=== PATIENT | male | born 1985 | race Caucasian/White ===

== ENCOUNTER → 2016-11-24 | Outpatient (CLI) | payer OTHER ==
--- NOTE | 2016-11-24 09:45 | MR ---
MR brain without contrast HISTORY: Episodic cluster headaches, G 44.19 Multiplanar multisequence imaging through the brain. Correlation to MR angiogram same date There is no restricted diffusion. There is no hemorrhage or hydrocephalus. Corpus callosum shows some pericallosal hyperintensity on inversion recovery and T2-weighted sequences, there are confluent and scattered foci within the deep white matter, approximately 5-10 lesions. There are normal vascular f low voids. Cerebellopontine angles, pituitary, cervical medullary junction are normal. The orbits jimmy w symmetric appearance. Inflammatory changes mild within the maxillary sinus, ethmoid air cells and f rontal sinus. Question a small focus of gliosis involving the right frontal cortex, axial image 19 of the inversion recovery dataset, possible remote trauma. IMPRESSION: Nonspecific white matter demyelination, consider migraine headaches, hypertension, vascul itis, multiple sclerosis in the appropriate clinical setting. Additional findings above.
--- NOTE | 2016-11-24 10:01 | MR ---
EXAMINATION TYPE: MR angio head wo con DATE OF EXAM: 11/24/2016 COMPARISON: Correlation MRI brain HISTORY: 31-year-old male with episodic cluster headaches TECHNIQUE: High resolution 3-D time of flight images focusing on the [place] were performed without contrast. 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 The typical origin of the right ant erior inferior cerebellar artery is not seen. Additionally, there is a prominent right posterior comm unicating artery. All of these changes suggest normal congenital variation. There is no arterial occlusion, significant stenosis, or aneurysmal change seen. IMPRESSION: Some variant anatomy as above. No significant stenosis or aneurysmal change seen.
== END ==
LOC: RADMRIMAIN 08:14
PROVIDERS: ATTEND Psychiatry & Neurology Neurology
DX: R90.89 Other abnormal findings on diagnostic imaging of central nervous system (principal); G44.019 Episodic cluster headache, not intractable
CPT/HCPCS: 70544; 70551

== ENCOUNTER → 2019-07-18 | Outpatient (CLI) | payer OTHER ==
--- NOTE | 2019-07-18 18:30 | XR ---
EXAMINATION TYPE: XR chest 2V DATE OF EXAM: 07/18/2019 COMPARISON: NONE HISTORY: Cough and congestion TECHNIQUE: 2 views FINDINGS: Heart and mediastinum are normal. Lungs are clear. Diaphragm is normal. Bony thorax appears normal. IMPRESSION: Normal chest.
== END | disposition home or self-care (01) ==
LOC: RAD 17:12
PROVIDERS: ATTEND Family Medicine
DX: R05 Cough (principal)
CPT/HCPCS: 71046

== ENCOUNTER 2020-12-27 08:03 | Day surgery (SDC) | payer OTHER ==
[2020-12-25 12:26] VITALS: BMI 33.2
[~2020-12-27 08:03] MED LIST: LACTATED RINGERS 1,000 ML IV SCH
[2020-12-27 09:22] VITALS: TEMP 97.6
[2020-12-27] MEDS ORDERED: LIDOCAINE 1% (10MG/ML) FOR IV START INTRADERMA ONE (09:26)
[2020-12-27] MEDS ORDERED: PROPOFOL 10 MG/ML 20 ML VIAL IV ONE (09:45)
[2020-12-27] MEDS ORDERED: LIDOCAINE 1% INJ 10MG/ML (20 ML MDV) ONE (09:45)
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
--- NOTE | 2020-12-27 10:08 | P.PCN ---
Date of Procedure: 12/27/20 Preoperative Diagnosis: Rectal bleed Postoperative Diagnosis: Internal hemorrhoids Procedure(s) Performed: Colonoscopy Anesthesia: MAC Surgeon: Landon Patel Pathology: none sent Condition: stable Disposition: same day Indications for Procedure: 35-year-old male presents with recent findings of rectal bleeding. He does have a history of hemorrhoid pathology. Plan is for colonoscopy. Risks, benefits and alternatives were provided to the patient. Consent was obtained. Operative Findings: Internal hemorrhoids Description of Procedure: The patient was brought to the endoscopy suite and placed in left lateral decubitus position. Adequate sedation was achieved using conscious sedation. A digital rectal exam was performed and mild internal hemorrhoids were palpated. An endoscope was then placed in the rectum and advanced to the cecum as id entified by landmarks including the appendiceal orifice and the ileocecal valve.. Colonoscope was then slowly withdrawn, examining for any mucosal abnormality. The cecum, ascending, transverse, descending and sigmoid colon were visualized adequately. No polyps were noted throughout the colon there was no evidence of neoplastic lesion. There was no evidence of diverticulosis. Retroflexion was performed in the rectum and internal hemorrhoids were visible. Excess air was removed, the colonoscope withdrawn and the procedure terminated. The patient was then transferred to the recovery unit in stable condition. Repeat colonoscopy should be performed at age 50 based on current screening guidelines unless otherwise symptomatically.
[2020-12-27 10:15] VITALS: RESP 16
[2020-12-27 10:24] VITALS: BP 111/74; PULSE 84
== END 2020-12-27 10:55 | disposition home or self-care (01) ==
LOC: ORWHC2ENDO 08:03
PROVIDERS: ATTEND Surgery
DX: K62.5 Hemorrhage of anus and rectum (principal); K64.8 Other hemorrhoids; K21.9 Gastro-esophageal reflux disease without esophagitis; J30.2 Other seasonal allergic rhinitis; Z87.820 Personal history of traumatic brain injury; Z98.890 Other specified postprocedural states; Z87.891 Personal history of nicotine dependence; Z79.899 Other long term (current) drug therapy
CPT/HCPCS: 45378; J2001; J2704

== ENCOUNTER → 2021-11-14 | Outpatient (CLI) | payer OTHER ==
--- NOTE | 2021-11-14 10:54 | US ---
EXAMINATION TYPE: US abdomen complete DATE OF EXAM: 11/14/2021 COMPARISON: NONE CLINICAL HISTORY: R31.9 HEMATURIA. LUQ pain x 2 years and hematuria. EXAM MEASUREMENTS: Liver Length: 16.6 cm Gallbladder Wall: 0.23 cm CBD: 0.23 cm Spleen: 11.9 cm Right Kidney: 10.3 x 6.1 x 5.4 cm Left Kidney: 12.1 x 6.0 x 7.5 cm Pancreas: Obscured by bowel gas Liver: Increased attenuation, heterogeneous Gallbladder: wnl Evidence for sonographic Pat's sign: No CBD: wnl Spleen: wnl Right Kidney: wnl Left Kidney: wnl Upper IVC: wnl Abd Aorta: Obscured by overlying bowel gas. Parts visualized wnl The visualized liver is heterogeneously hyperechoic. Suspect mild diffuse fatty infiltration. The in trahepatic portion of the IVC and proximal, mid, and distal abdominal aorta are within normal limits. There is no evidence of cholelithiasis. Common bile duct is unremarkable. Majority of pancreas obs cured by overlying bowel gas on initial images. The spleen is unremarkable. Kidneys are symmetric a nd free of hydronephrosis. No renal lesions are seen. IMPRESSION: Source of left upper quadrant pain and hematuria not identified. Suboptimal evaluation of pancreas. If symptoms persist further investigation with CT without and with IV contrast would be wa rranted.
== END | disposition home or self-care (01) ==
LOC: RADUSWWP 08:15
PROVIDERS: ATTEND Family Medicine
DX: R31.9 Hematuria, unspecified (principal); R10.12 Left upper quadrant pain
CPT/HCPCS: 76700

== ENCOUNTER → 2022-07-22 | Outpatient (CLI) | payer OTHER ==
--- NOTE | 2022-07-22 10:40 | CT ---
EXAMINATION TYPE: CT abdomen pelvis w con CT DLP: 1800 mGycm, Automated exposure control for dose reduction was used. DATE OF EXAM: 07/22/2022 10:13 AM COMPARISON: None CLINICAL INDICATION:Male, 36 years old with history of K57.90 R07.9; TECHNIQUE: Axial CT of the abdomen and pelvis. Sagittal and coronal reformats were created on a [employer] workstation. Contrast used: None Oral contrast used: None FINDINGS: LOWER CHEST: Unremarkable ABDOMEN LIVER: Unremarkable GALLBLADDER AND BILE DUCTS: Unremarkable. PANCREAS: Unremarkable. SPLEEN: Unremarkable. ADRENAL GLANDS: Unremarkable. KIDNEYS AND URETERS: No evidence of hydronephrosis or renal calculus. The ureters are unremarkable. PELVIS BLADDER: Unremarkable REPRODUCTIVE: Unremarkable. ABDOMEN & PELVIS STOMACH AND BOWEL: No evidence of bowel obstruction. Normal appendix. Few scattered colonic diverticu la are present. PERITONEUM/RETROPERITONEUM: No evidence of pneumoperitoneum or free fluid. . VASCULATURE: No evidence of aortic aneurysm. MUSCULOSKELETAL: No acute osseous abnormalities LYMPH NODES: No gross evidence for lymphadenopathy. SOFT TISSUE/ABDOMINAL WALL: Small fat-containing umbilical hernia. IMPRESSION: 1. Few scattered colonic diverticula without evidence for diverticulitis. No acute intra-abdominal p rocess. 2. No obstructive uropathy.
== END | disposition home or self-care (01) ==
LOC: RADCTMAIN 07:53
PROVIDERS: ATTEND Family Medicine
DX: K57.30 Diverticulosis of large intestine without perforation or abscess without bleeding (principal); R07.9 Chest pain, unspecified
CPT/HCPCS: 74177; Q9967 ×2